=== PATIENT | female | born 1980 | race Caucasian/White ===

== ENCOUNTER 2017-02-18 11:41 | Emergency (ER) | payer MEDICAID ==
[~2017-02-18] VITALS: Ht 167.6 cm; Wt 66.6 kg
[2017-02-18 12:58] LABS: HEMATOCRIT 43.4 % (34.6-47.8); HEMOGLOBIN 14.6 g/dL (11.7-16.4); WHITE BLOOD COUNT 7.3 x10^3/uL (3.4-10)
[2017-02-18] MEDS ORDERED: morphine SULFATE 10 MG/ML, 1ML IVPush ONE ×2 (13:00→14:30)
[2017-02-18] MEDS ORDERED: ONDANSETRON ODT 4 MG PO ONE (13:00)
[2017-02-18] MEDS ORDERED: SODIUM CHLORIDE 0.9% 1,000ML IVBOLUS ONE (13:00)
[2017-02-18 13:05] LABS: ASPARTATE AMINO TRANSFERASE 13 U/L (15-37); BLOOD UREA NITROGEN 12 mg/dL (7-18)
[2017-02-18] MEDS ORDERED: morphine SULFATE 10 MG/ML, 1ML ONE (13:08)
[2017-02-18] MEDS ORDERED: ONDANSETRON ODT 4 MG ONE (13:09)
[2017-02-18 15:10] VITALS: BP 106/56
== END 2017-02-18 15:44 | disposition home or self-care (01) ==
LOC: ED 15:42
DX: R10.2 Pelvic and perineal pain (principal); N93.9 Abnormal uterine and vaginal bleeding, unspecified; F31.9 Bipolar disorder, unspecified; F41.9 Anxiety disorder, unspecified
CPT/HCPCS: 36415; 76830; 80053; 81003; 84703; 85025; 87210; 87491; 87591; 87808; 96361; 96374; 96376; 99285; J2270; J7030; Q0162

== ENCOUNTER 2017-12-19 17:26 | Emergency (ER) | payer MEDICAID, OTHER ==
[~2017-12-19] VITALS: Ht 170.2 cm; Wt 70.0 kg
[2017-12-19 17:42] VITALS: BP 126/90
== END 2017-12-19 19:13 | disposition home or self-care (01) ==
LOC: ED 19:05
DX: F41.1 Generalized anxiety disorder (principal); F17.200 Nicotine dependence, unspecified, uncomplicated; F31.9 Bipolar disorder, unspecified; F98.8 Other specified behavioral and emotional disorders with onset usually occurring in childhood and adolescence
CPT/HCPCS: 99283

== ENCOUNTER 2019-12-14 08:35 | Emergency (ER) | payer MEDICAID, OTHER ==
[~2019-12-14] VITALS: Ht 167.6 cm; Wt 61.5 kg
[2019-12-14] MEDS ORDERED: ONDANSETRON 2MG/ML, 2ML ONE (08:59)
[2019-12-14] MEDS ORDERED: MORPHINE SULFATE 4 MG/ML, 1ML ONE ×2 (08:59→10:24)
[2019-12-14] MEDS ORDERED: FAMOTIDINE 20 MG/2 ML ONE (08:59)
[2019-12-14] MEDS ORDERED: FAMOTIDINE 20 MG/2 ML IVPush ONE (09:00)
[2019-12-14] MEDS ORDERED: ONDANSETRON 2MG/ML, 2ML IVPush ONE (09:00)
[2019-12-14] MEDS ORDERED: SODIUM CHLORIDE FLUSH 10ML SYR IVF ONE (09:00)
[2019-12-14] MEDS: MORPHINE SULFATE 4 MG/ML, 1ML IVPush PRN ×2 (09:05→10:29)
[2019-12-14 09:26] LABS: ALBUMIN 3.2 g/dL (3.4-5.0); ANION GAP 4 mmol/L (5-15); CALCIUM 7.9 mg/dL (8.5-10.1); CHLORIDE 111 mmol/L (98-107)
[2019-12-14 09:27] LABS: BASOPHILS # (AUTO) 0.04 x10^3/uL (0-0.1); BASOPHILS % (AUTO) 1 % (0-1); EOSINOPHILS # (AUTO) 0.36 x10^3/uL (0-0.4); EOSINOPHILS % (AUTO) 5 % (1-7); LYMPHOCYTES # (AUTO) 1.64 x10^3/uL (1-3.4); LYMPHOCYTES % (AUTO) 23 % (22-44); MD NO; MEAN CORPUSCULAR HEMOGLOBIN 30.6 pg (27.0-34.8); MEAN CORPUSCULAR VOLUME 92.8 fL (80-100); MEAN PLATELET VOLUME 7.1 fL (7.4-10.4); MONOCYTES # (AUTO) 0.59 x10^3/uL (0.2-0.8); MONOCYTES % (AUTO) 8 % (2-9); NEUTROPHILS % (AUTO) 63 % (42-75); PLATELET COUNT 309 x10^3/uL (130-400); RED BLOOD COUNT 4.17 x10^6/uL (3.82-5.3); RED CELL DISTRIBUTION WIDTH 12.4 % (9.6-15.2)
[2019-12-14 09:32] LABS: ALANINE AMINOTRANSFERASE 31 U/L (12-78); ALKALINE PHOSPHATASE 52 U/L (45-117); BILIRUBIN,TOTAL 0.2 mg/dL (0.2-1.0); TOTAL PROTEIN 5.7 g/dL (6.4-8.2)
[2019-12-14 09:59] LABS: MICROSCOPIC NOT IND
--- NOTE | 2019-12-14 10:00 | NUR ---
PT LAYING ON GURNEY WITH EYES CLOSED, RESPONDS APPROP TO STAFF, C/O PAIN- "A LITTLE BETTER AFTER MEDICINE, NO NAUSEA THOUGH", COMFORT MEASURES PROVIDED, CALL LIGHT WITHIN REACH.
--- NOTE | 2019-12-14 10:35 | NUR ---
PT TO CT
--- NOTE | 2019-12-14 10:44 | NUR ---
PT RETURNED FROM CT
[2019-12-14] MEDS ORDERED: OMNIPAQUE 350 MG/ML, 100ML BOTTLE ONE (10:53)
--- NOTE | 2019-12-14 11:01 | NUR ---
PT CONTINUES LAYING ON GURNEY WITH EYES CLOSED, RESPONDS APPROP TO STAFF, C/O LESSENED PAIN- "MEDICINE HELPED & NO NAUSEA THOUGH", COMFORT MEASURES PROVIDED, CALL LIGHT WITHIN REACH.
[2019-12-14 12:04] VITALS: BP 97/59
--- NOTE | 2019-12-14 12:54 | NUR ---
Patient given verbal discharge instructions, they have confirmed that they understand the instructions but refused to wait for written Rx/instructions, pt left yelling "I don't know why you guys can't find anything wrong with me, this is bullshit!". Patient ambulatory with steady gait.
== END 2019-12-14 13:08 | disposition home or self-care (01) ==
LOC: ED 10:09
DX: S30.1XXA Contusion of abdominal wall, initial encounter (principal); R10.13 Epigastric pain; N20.0 Calculus of kidney; X58.XXXA Exposure to other specified factors, initial encounter; Y93.89 Activity, other specified; Y92.89 Other specified places as the place of occurrence of the external cause; Y99.8 Other external cause status
CPT/HCPCS: 36415; 74022; 74177; 80053; 81003; 83690; 84703; 85025; 96374; 96375; 96376; 99285; J2270; J2405; J3490; Q9967